=== PATIENT | male | born 1945 | race Caucasian/White ===

== ENCOUNTER → 2020-08-29 07:56 | Outpatient (BNVA) | payer MEDICARE, SELFPAY | PROVIDERS: Family Provider Internal Medicine; PCP Internal Medicine; Visit Provider Nurse Practitioner Family | DX: R97.20 Elevated prostate specific antigen [PSA] (principal) | CPT/HCPCS: 81003; 84153 ==

== ENCOUNTER → 2021-08-24 08:15 | Outpatient (BNVA) | payer MEDICARE, OTHER, SELFPAY | PROVIDERS: Family Provider Internal Medicine; PCP Internal Medicine; Visit Provider Urology | DX: R97.20 Elevated prostate specific antigen [PSA] (principal); R39.9 Unspecified symptoms and signs involving the genitourinary system | CPT/HCPCS: 51741; 51798; 81003; 99213 ==

== ENCOUNTER → 2021-11-27 10:09 | Outpatient (BNVA) | payer MEDICARE, OTHER, SELFPAY | PROVIDERS: Family Provider Internal Medicine; PCP Internal Medicine; Visit Provider Urology | DX: R39.9 Unspecified symptoms and signs involving the genitourinary system (principal); R97.20 Elevated prostate specific antigen [PSA]; N40.1 Benign prostatic hyperplasia with lower urinary tract symptoms; N13.8 Other obstructive and reflux uropathy | CPT/HCPCS: 51741; 51798; 81003; 99213 ==

== ENCOUNTER → 2022-02-26 12:58 | Outpatient (BNVA) | payer MEDICARE, SELFPAY | PROVIDERS: Family Provider Internal Medicine; PCP Physician Assistant; Visit Provider Internal Medicine | DX: E11.9 Type 2 diabetes mellitus without complications (principal); E78.2 Mixed hyperlipidemia; Z79.84 Long term (current) use of oral hypoglycemic drugs | CPT/HCPCS: 36415; 80053; 84681; 86337; 86341; 99204 ==

== ENCOUNTER → 2022-03-13 13:03 | Outpatient (BNVA) | payer MEDICARE, SELFPAY | PROVIDERS: Family Provider Internal Medicine; PCP Physician Assistant; Visit Provider Internal Medicine | DX: E11.9 Type 2 diabetes mellitus without complications (principal); E78.2 Mixed hyperlipidemia; Z79.4 Long term (current) use of insulin | CPT/HCPCS: 99214 ==

== ENCOUNTER 2022-04-03 23:42 | Emergency (ER) | payer MEDICARE, OTHER, SELFPAY ==
[2022-04-03 23:48] VITALS: BP 164/66; PULSE 64; RESP 16; TEMP 37; O2SAT 97; BMI 21.8
--- NOTE | 2022-04-03 23:52 | ED_ITS ---
HPI - Male Genitourinary General: Chief complaint: Urogenital-Male Stated complaint: blood in urine Time Seen by Provider: 04/03/22 23:45 Source: patient Mode of arrival: ambulatory Limitations: no limitations History of Present Illness: Patient is a very nice 76-year-old male who presents to ED today along with his for evaluation of gross hematuria that he began noticing this evening. Patient states he has never had this before. He states he does have a history of kidney stones but states he currently is not having any discomfort at this time. History of BPH to which he was following up with Dr. Echo yung. Patient is not having any difficulty with urination. MD Complaint: other (hematuria) Onset (ago): hour(s) Relieving factors: none Exacerbating factors: none Associated symptoms: Reports no associated symptoms and hematuria; Deny dysuria or urinary incontinence Review of Systems Const: Denies: fever(s), chills, body aches, fatigue or malaise Card: Denies: chest pain Resp: Denies: dyspnea GI: Denies: abdominal pain or change in bowel habits : Reports: hematuria; Denies: flank pain, difficulty urinating, dysuria, urinary frequency, urinary urgency, urinary hesitancy, oliguria, urinary incontinence or testicular pain Musc: Denies: back pain PFSH ED PFSH: Medical History Elevated PSA HTN (hypertension) Non-insulin dependent diabetes mellitus Surgical History H/O Achilles tendon repair H/O left knee surgery History of colonoscopy Family History Mother , at age 85 No problems noted. Father , at age 83 Diabetes Social History Smoking and tobacco status: former smoker Alcohol intake: never Marital status: Current occupational status: retired History of recent travel: No Physical Exam Const: COMMON NORMALS: no acute distress, average body habitus, patient oriented x3, no limitations, healthy appearing, alert and well nourished Resp: COMMON NORMALS: normal respiratory effort and clear to auscultation bilaterally AUSCULTATION: clear to auscultation bilaterally Cardio: COMMON NORMALS: regular rate and regular rhythm RATE: regular rate RHYTHM: regular rhythm GI: COMMON NORMALS: Normal to inspection, nondistended, normoactive bowel sounds present, Soft to palpation, non-tender, No hepatosplenomegaly present and no masses PALPATION: Yes Soft to palpation and Yes No hepatosplenomegaly present : COMMON NORMALS: Yes no CVA tenderness BLADDER/KIDNEY EXAM: Yes no CVA tenderness Back/Pelvis: COMMON NORMALS: no CVA tenderness Extremity: COMMON NORMALS: normal to inspection, no clubbing, cyanosis or edema and no pedal edema Neuro: MESHA COMA SCALE: document GCS findings [place] coma scale eye opening: Spontaneous [place] coma scale verbal response: Orientated Mesha coma scale motor response: Obey commands Mesha coma scale total score: 15 COMMON NORMALS: patient oriented x3 SENSORIUM/ORIENTATION: Yes alert Skin: COMMON NORMALS: no rashes or lesions noted GENERAL SKIN EXAM: no rashes or lesions noted Course Vital Signs: Vital signs: Vital Signs Temperature 98.6 F 04/03/22 23:48 Pulse Rate 51 L 04/04/22 00:49 Respiratory Rate 18 04/04/22 00:49 Blood Pressure 140/59 04/04/22 00:49 Pulse Oximetry 92 04/04/22 00:49 Oxygen Delivery Me thod 04/04/22 00:49 [facility] - Male Medical Decision Making Patient is a nice 76-year-old male here for complaints of gross hematuria beginning today. Vital signs are stable. Blood work shows a normal white count. UA is positive for blood, trace leuks, 10-15 WBCs, and 1+ bacteria. CT scan showing diffusely thickened bladder wall and nodular prostate gland hypertrophy. He does have a history of BPH and has followed with Dr. Dodge for this. He has multiple renal cysts. At this time we will place on antibiotics and have him follow-up with primary care. If hematuria does not resolve he may require referral back to Dr. Dodge for cystoscopy. Lab Data 04/03/22 23:58 04/03/22 23:58 Radiology Impressions Abdomen/Pelvis CT 04/04/22 00:02 IMPRESSION: 1. Diffusely thickened bladder wall. 2. Nodular prostate gland hypertrophy. 3. Multiple small simple bilateral renal cortical cysts. 4. Negative for acute abdominopelvic pathology. COMMENTS: Consistent with the [employer] [place] [employer]'s Incidental Findings Committee white paper (J Am Gregoria Radiol 2018): Any incidental renal lesion less than 1 cm or classified as too small to characterize, or any incidental cystic renal lesion characterized as simple-appearing, is likely benign. No follow-up imaging is recommended for these lesions per consensus recommendations based on imaging criteria. Laboratory Results WBC 10.0 10^3/uL (4.0-10.0) 04/03/22 23:58 RBC 4.26 10^6/uL (4.1-5.3) 04/03/22 23:58 Hgb 12.8 g/dL (11.7-16.6) 04/03/22 23:58 Hct 39.1 % (42.0-52.0) L 04/03/22 23:58 MCV 91.8 fl (80-94) 04/03/22 23:58 MCH 30.0 pg (28.0-34.0) 04/03/22 23:58 MCHC 32.7 g/dL (30.0-36.0) 04/03/22 23:58 RDW 13.8 % (12.1-15.1) 04/03/22 23:58 Plt Count 196 10^3/cmm (130-400) 04/03/22 23:58 MPV 11.0 fL (7.4-10.4) H 04/03/22 23:58 Neut % (Auto) 59.4 % 04/03/22 23:58 Lymph % (Auto) 30.9 % 04/03/22 23:58 [place] % (Auto) 6.9 % 04/03/22 23:58 Eos % (Auto) 1.8 % 04/03/22 23:58 Baso % (Auto) 0.6 % 04/03/22 23:58 Neut # (Auto) 5.95 10^3/uL (1.8-7.7) 04/03/22 23:58 Lymph # (Auto) 3.1 10^3/uL (0.8-4.8) 04/03/22 23:58 [place] # (Auto) 0.7 10^3/uL (0.2-0.9) 04/03/22 23:58 Eos # (Auto) 0.2 10^3/uL (0.0-0.8) 04/03/22 23:58 Baso # (Auto) 0.1 10^3/uL (0.0-0.1) 04/03/22 23:58 Nucleated RBC % (auto) 0 % 04/03/22 23:58 Nucleated RBCs # 0.0 /100WBC 04/03/22 23:58 Sodium 137 mmol/L (136-145) 04/03/22 23:58 Potassium 3.7 mmol/L (3.5-5.1) 04/03/22 23:58 Chloride 98 mmol/L (98-107) 04/03/22 23:58 Carbon Dioxide 23 mmol/L (22-29) 04/03/22 23:58 Anion Gap 19.7 (5-19) H 04/03/22 23:58 BUN 18 mg/dL (8-23) 04/03/22 23:58 Creatinine 1.0 mg/dL (0.7-1.2) 04/03/22 23:58 GFR Calculation Not Reportable 04/03/22 23:58 Glucose 337 mg/dL (65-115) H 04/03/22 23:58 Calculated Osmolality 299 mOsm/kg (285-295) H 04/03/22 23:58 Calcium 9.3 mg/dL (8.5-10.5) 04/03/22 23:58 Total Bilirubin 0.2 mg/dL (0.15-1.2) 04/03/22 23:58 AST 12 U/L (0-40) 04/03/22 23:58 ALT 10 U/L (0-41) 04/03/22 23:58 Alkaline Phosphatase 67 U/L (40-130) 04/03/22 23:58 Total Protein 6.8 g/dL (6.6-8.7) 04/03/22 23:58 Albumin 4.4 g/dL (3.5-5.2) 04/03/22 23:58 Globulin 2.4 g/dL (1.3-4.6) 04/03/22 23:58 Urine Color Red (Yellow) 04/04/22 00:00 Urine Appearance Bloody (CLEAR) A 04/04/22 00:00 Urine pH 6 (5-7) 04/04/22 00:00 Ur Specific Pierz 1.015 (1.005-1.030) 04/04/22 00:00 Urine Protein 3+ (Negative) H 04/04/22 00:00 Urine Glucose (UA) 4+ (Normal) H 04/04/22 00:00 Urine Ketones Negative (Negative) 04/04/22 00:00 Urine Blood 3+ (Negative) H 04/04/22 00:00 Urine Nitrate Negative (Negative) 04/04/22 00:00 Urine Bilirubin Neg (Negative) 04/04/22 00:00 Urine Urobilinogen Norm mg/dL (Negative) 04/04/22 00:00 Ur Leukocyte Esterase Trace (Negative) H 04/04/22 00:00 Urine RBC Too numerous to cnt /hpf (0-2) H 04/04/22 00:00 Urine WBC 10-15 /hpf (0-5) H 04/04/22 00:00 Ur Squamous Epith Cells 0-4 /hpf (0-5) H 04/04/22 00:00 Amorphous Sediment Not Reportable 04/04/22 00:00 Urine Bacteria 1+ /hpf (NONE) H 04/04/22 00:00 Discharge Plan Discharge Patient Disposition: Home Clinical Impression: Acute cystitis with hematuria Condition: Stable Prescriptions: New Bactrim DS 800-160 mg tablet 1 tab PO BID 7 Days Qty: 14 0RF No Action Janumet 50-1,000 mg tablet 1 tab PO BID glimepiride 4 mg tablet 4 mg PO BID niacin 500 mg capsule, extended release 500 mg PO BID simvastatin 20 mg tablet 20 mg PO DAILY amlodipine-benazepril 10-40 mg capsule 1 cap PO DAILY aspirin [Adult Low Dose Aspirin] 81 mg tablet,delayed release (DR/EC) 81 mg PO DAILY nebivolol 10 mg tablet 10 mg PO DAILY chlorthalidone 25 mg tablet 25 mg PO DAILY sildenafil (pulm.hypertension) 20 mg tablet 20 mg PO .prn Rx Instructions: administer doses at least 4-6 hours apart metformin 1,000 mg tablet 1,000 mg PO BID Qty: 180 3RF Januvia 100 mg tablet 100 mg PO DAILY Qty: 90 3RF acarbose 25 mg tablet 25 mg PO TID Qty: 90 0RF Rx Instructions: 1 month with log tamsulosin 0.4 mg capsule 0.4 mg PO DAILY Qty: 90 3RF Discharge Orders: Discharge ED (Routine); Ordered 04/04/22 Ordered By: Guera Buenrostro Referrals: Swati Welsh PA [Primary Care Provider] - Activity Restrictions/Additional Instructions: As we discussed begin your antibiotics immediately. Follow-up with your primary care provider in 3 to 4 days for reevaluation. You need to return to the emergency department for onset of flank pain, abdominal pain, fevers, vomiting, generally feeling ill or unwell, inability to urinate, or any other concerns you may have. I hope you begin to feel better soon. Also as we discussed if h ematuria (blood in your urine) is not improved after antibiotic therapy you may require referral back to see Dr. Dodge for cystoscopy. Coding Level of Care Code ED Professor Of Genetics for Britton Fwharish Exam Comprehensive
[2022-04-04 00:02] LABS: Basophils # 0.1 10^3/uL (0.0-0.1); Basophils % 0.6 %; Eosinophils # 0.2 10^3/uL (0.0-0.8); Eosinophils % 1.8 %; Hematocrit 39.1 % (42.0-52.0); Hemoglobin 12.8 g/dL (11.7-16.6); Lymphocytes # 3.1 10^3/uL (0.8-4.8); Lymphocytes % 30.9 %; Mean Corpuscular HGB Conc 32.7 g/dL (30.0-36.0); Mean Corpuscular Volume 91.8 fl (80-94); Monocytes # 0.7 10^3/uL (0.2-0.9); Monocytes % 6.9 %; Neutrophils # 5.95 10^3/uL (1.8-7.7); Neutrophils % 59.4 %; Nucleated Red Blood Cells % 0 %; Platelet Count 196 10^3/cmm (130-400); Red Blood Count 4.26 10^6/uL (4.1-5.3); Red Cell Distribution Width 13.8 % (12.1-15.1)
--- NOTE | 2022-04-04 00:02 | CTR_ITS ---
PROCEDURE INFORMATION: Exam: CT Abdomen And Pelvis Without And With Contrast Exam date and time: 04/04/2022 12:16 AM Age: 76 years old Clinical indication: Patient HX: Gross hematuria. History of nephrolithiasis. TECHNIQUE: Imaging protocol: Computed tomography of the abdomen and pelvis without and with contrast. Radiation optimization: All CT scans at this facility use at least one of these dose optimization techniques: automated exposure control; mA and/or kV adjustment per patient size (includes targeted exams where dose is matched to clinical indication); or iterative reconstruction. Contrast material: OMNI 350; Contrast volume: 100 ml; Contrast route: INTRAVENOUS (IV); Other protocol: This patient has received 0 known CTs and 0 known cardiac nuclear medicine studies in the 12 months prior to the current study. COMPARISON: No relevant prior studies available. RADIATION DOSE METRICS: Total DLP (mGy-cm): 766.93 FINDINGS: Liver: Normal. No mass. Gallbladder and bile ducts: There is possibly trace pneumobilia. Nondilated biliary system. Contracted, grossly unremarkable gallbladder. Pancreas: Atrophic pancreatic parenchyma focal lesion. Spleen: Numerous small calcified granulomas throughout the spleen. Negative for splenomegaly. Adrenal glands: Normal. No mass. Kidneys and ureters: Several small simple bilateral renal cortical cysts. Renal cortical atrophy left worse than right. Negative for solid renal mass. Negative for hydronephrosis. Negative for renal stones. Negative for perinephric inflammation. Negative for ureteral stone. Stomach and bowel: Unremarkable. No obstruction. No mucosal thickening. Appendix: No evidence of appendicitis. Intraperitoneal space: Unremarkable. No free air. No significant fluid collection. Vasculature: Extensive atherosclerotic wall plaques throughout abdominal aorta. Negative for aneurysm. Negative for dissection. Large plaque volume of the bilateral common iliac arteries with moderate stenosis of the origins. Lymph nodes: Unremarkable. No enlarged lymph nodes. Urinary bladder: Diffuse bladder wall thickening. Negative for bladder stone. Reproductive: Prostatomegaly. Diffuse heterogeneity and nodularity. Bones/joints: Severe L5-S1 disc disease. Negative for suspicious bone lesion. Negative for fracture. Soft tissues: Unremarkable. CT/CT abdomen pelvis wo/w [id number] IMPRESSION: 1. Diffusely thickened bladder wall. 2. Nodular prostate gland hypertrophy. 3. Multiple small simple bilateral renal cortical cysts. 4. Negative for acute abdominopelvic pathology. COMMENTS: Consistent with the [place] [employer]'s Incidental Findings Committee white paper (J Am Gregoria Radiol 2018): Any incidental renal lesion less than 1 cm or classified as too small to characterize, or any incidental cystic renal lesion characterized as simple-appearing, is likely benign. No follow-up imaging is recommended for these lesions per consensus recommendations based on imaging criteria.
[2022-04-04 00:04] VITALS: BP 159/57; PULSE 56; RESP 14; O2SAT 94
[2022-04-04 00:19] LABS: Urine Color Red (Yellow)
[2022-04-04 00:20] LABS: Add Urine Microscopic? YES; Bilirubin Urine Neg (Negative); Blood Urine 3+ (Negative); Glucose Urine UA 4+ (Normal); Ketones Urine Negative (Negative); Leukocyte Esterase Urine Trace (Negative); Nitrate Urine Negative (Negative); Protein Urine 3+ (Negative); Specific Gravity, Urine 1.015 (1.005-1.030); Urine Appearance Bloody (CLEAR); Urobilinogen Urine Norm (Negative); pH Urine 6 (5-7)
[2022-04-04 00:21] LABS: Add Urine Culture? Yes; Bacteria Urine 1+ /hpf; RBC Urine TOO NUMEROUS TO CNT /hpf (0-2); Squamous Epithelial Cell Urine 0-4 /hpf (0-5)
[2022-04-04] MEDS: iohexol 350 mg/mL 500 mL Btl (per mL) IV (00:26)
[2022-04-04 00:34] LABS: Alanine Aminotransferase 10 U/L (0-41); Albumin Level 4.4 g/dL (3.5-5.2); Alkaline Phosphatase 67 U/L (40-130); Anion Gap 19.7 (5-19); Aspartate Amino Transferase 12 U/L (0-40); Blood Urea Nitrogen 18 mg/dL (8-23); Calcium 9.3 mg/dL (8.5-10.5); Carbon Dioxide 23 mmol/L (22-29); Chloride 98 mmol/L (98-107); Creatinine Clr Calc Pharmacy 61.5758; Globulin 2.4 g/dL (1.3-4.6); Glucose 337 mg/dL (65-115); Osmolality Calculated 299 mOsm/kg (285-295); Potassium 3.7 mmol/L (3.5-5.1); Sodium 137 mmol/L (136-145); Total Bilirubin 0.2 mg/dL (0.15-1.2); Total Protein 6.8 g/dL (6.6-8.7)
[2022-04-04 00:49] VITALS: BP 140/59; PULSE 51; RESP 18; O2SAT 92
[2022-04-04] MEDS: sulfamethoxazole-trimeth DS 160-800 mg Tablet 1 TAB PO (01:58)
[2022-04-04 02:08] VITALS: BP 127/60; PULSE 52; RESP 18; O2SAT 96
== END 2022-04-04 02:11 | disposition home or self-care (01) ==
PROVIDERS: Emergency Provider Physician Assistant; PCP Physician Assistant
DX: N30.01 Acute cystitis with hematuria (principal)
CPT/HCPCS: 74178; 80053; 81001; 85025; 87086; 99285; Q9967

== ENCOUNTER → 2022-05-30 12:34 | Outpatient (BNVA) | payer MEDICARE, OTHER, SELFPAY | PROVIDERS: PCP Physician Assistant; Visit Provider Internal Medicine | DX: E11.9 Type 2 diabetes mellitus without complications (principal); E78.2 Mixed hyperlipidemia; Z79.84 Long term (current) use of oral hypoglycemic drugs | CPT/HCPCS: 99214 ==

== ENCOUNTER → 2022-09-04 14:16 | Outpatient (BNVA) | payer MEDICARE, OTHER, SELFPAY | PROVIDERS: PCP Physician Assistant; Visit Provider Internal Medicine | DX: E11.9 Type 2 diabetes mellitus without complications (principal); E78.2 Mixed hyperlipidemia | CPT/HCPCS: 99214 ==

== ENCOUNTER 2022-12-13 08:03 | Outpatient (CLI) | payer MEDICARE, SELFPAY ==
--- NOTE | 2022-12-13 | XR_ITS ---
WS: [id number] CHEST 2 VIEWS HISTORY: COUGH COMPARISON: None available. Lungs: Mildly hyperexpanded lungs. Benign granuloma anterior LEFT upper lobe. No pneumonia. Normal va sculature. Cardiac size: Normal. Mediastinum/Aorta: Moderate atherosclerotic plaque within the thoracic aorta. Bones: Normal. IMPRESSION: No acute cardiopulmonary disease. Mild hyperexpansion.
== END 2022-12-13 08:04 | disposition home or self-care (01) ==
LOC: RADOUTREAD 12-16 08:05
PROVIDERS: PCP Physician Assistant; Visit Provider Physician Assistant
DX: E11.65 Type 2 diabetes mellitus with hyperglycemia (principal); E78.2 Mixed hyperlipidemia; Z79.84 Long term (current) use of oral hypoglycemic drugs; Z79.899 Other long term (current) drug therapy; Z79.4 Long term (current) use of insulin
CPT/HCPCS: 99214

== ENCOUNTER 2023-02-24 09:35 | Emergency (ER) | payer MEDICARE, OTHER, SELFPAY ==
[2023-02-24 09:53] VITALS: BP 118/64; PULSE 50; RESP 16; TEMP 36.7; O2SAT 98; BMI 22.8
--- NOTE | 2023-02-24 10:18 | ED_ITS ---
HPI - Eye Problem General: Chief complaint: Eye Problems Stated complaint: Lt eye inj Time Seen by Provider: 02/24/23 09:36 Source: patient Mode of arrival: ambulatory History of Present Illness: 77-year-old male presents emergency room complaining of discomfort in the left eye he was rubbing his eyes last night felt like he got something in it he is able to get out but he still feels like there is of the either in the eye or having had scratched the eye. MD chief complaint: eye pain Associated symptoms: Denies fever(s) Review of Systems Const: Denies: fever(s) or chills Eyes: Reports: eye discomfort and eye redness; Denies: change in vision or blurry vision PFSH ED PFSH: Medical History Non-insulin dependent diabetes mellitus HTN (hypertension) Elevated PSA Surgical History H/O Achilles tendon repair H/O left knee surgery History of colonoscopy Family History Mother , at age 85 No problems noted. Father , at age 83 Diabetes Social History Smoking and tobacco/nicotine status: former use of tobacco/nicotine Alcohol intake: never Marital status: Current occupational status: retired Physical Exam Narrative: EXAM NARRATIVE: Mild injection on the left eye no hyphema pupil equal react light extraocular movements are intact no subconjunctival hematoma fluorescein dye applied after eye anesthetized with tetracaine. No corneal abrasions or irritations. I irrigated out eversion of the eyelids no foreign bodies Course Vital Signs: Vital signs: Vital Signs Temperature 98.0 F 02/24/23 09:53 Pulse Rate 50 L 02/24/23 11:45 Respiratory Rate 16 02/24/23 11:45 Blood Pressure 118/64 02/24/23 09:53 Pulse Oximetry 96 02/24/23 11:45 Oxygen Delivery Me thod Room Air 02/24/23 09:53 MDM - Eye Problem Medical Decision Making TobraDex drops 1 drop every 4 hours while awake for the next 3 to 5 days follow- up with ophthalmology optometry if not improving Medical Records I reviewed the patient's medical records. Lab Data I reviewed the patient's lab results. All radiology interpretation(s) finalized by discharge Discharge Plan Discharge Patient Disposition: Home Clinical Impression: Corneal abrasion Condition: Stable Prescriptions: New Tobradex ST 0.3-0.05 % drops,suspension 1 drp ophthalmic (eye) Q4H Qty: 5 0RF No Action Janumet 50-1,000 mg tablet 1 tab PO BID niacin 500 mg capsule, extended release 500 mg PO BID simvastatin 20 mg tablet 20 mg PO DAILY amlodipine-benazepril 10-40 mg capsule 1 cap PO DAILY aspirin [Adult Low Dose Aspirin] 81 mg tablet,delayed release (DR/EC) 81 mg PO DAILY metoprolol succinate 50 mg tablet extended release 24 hr 50 mg PO DAILY chlorthalidone 25 mg tablet 25 mg PO DAILY insulin glargine [Lantus Solostar U-100 Insulin] 100 unit/mL (3 mL) insulin pen 50 unit SUBCUT ONCE 30 Days Qty: 15 2RF azithromycin [Zithromax] 500 mg tablet 500 mg PO DAILY 5 Days Qty: 5 0RF nebivolol 10 mg tablet 10 mg PO DAILY chlorthalidone 25 mg tablet 25 mg PO DAILY sildenafil (pulm.hypertension) 20 mg tablet 20 mg PO .prn Rx Instructions: administer doses at least 4-6 hours apart acarbose 25 mg tablet 25 mg PO TID Qty: 90 0RF Rx Instructions: 1 month with log acarbose 50 mg tablet 50 mg PO TID Qty: 300 2RF tamsulosin 0.4 mg capsule 0.4 mg PO DAILY Qty: 90 3RF Discharge Orders: Discharge ED (Routine); Ordered 02/24/23 Ordered By: Phi Cantrell Referrals: Swati Welsh PA [Primary Care Provider] - Discharge Diet: Usual diet Discharge Activity: Resume usual activity Patient Instructions: Opioid Safety, Pain Management Activity Restrictions/Additional Instructions: Thank you for choosing [facility] for your healthcare needs today. Please realize this is an emergency room and that we are providing you with a medical screening exam and this may not be complete and all inclusive of all the testing and or work up that you may need to determine your ailment or severity of your illness. It is very important that you follow up as instructed or that you return to the Emergency Department should you have concerns or if your condition changes or worsens in any way. Examination of the eye did not show any retained foreign bodies and there was no sign of significant corneal abrasion suspected based on your history you to my no chronic abrasion that is already partially healed likely from foreign body suspect that you were able to wash it or dislodge it out of your eye shortly after this happened you recommend use of 2 the antibiotic steroid combination eyedrops for the next 3 to 5 days if not improving follow-up with your primary garnett mechanic/electrical test technician Coding Level of Care Code ED Biodiesel Process Control Technician for Britton Kimbrough
[2023-02-24] MEDS: fluorescein 1 mg Strip EYE-LEFT (10:41)
[2023-02-24] MEDS: tetracaine 0.5% Op Soln 4 mL Btl 1 DROP EYE-LEFT (10:41)
[2023-02-24 11:45] VITALS: PULSE 50; RESP 16; O2SAT 96
[2023-02-24] MEDS: eye irrigation 30 mL Btl EYE-LEFT (11:46)
== END 2023-02-24 11:48 | disposition home or self-care (01) ==
PROVIDERS: Emergency Provider Family Medicine; PCP Physician Assistant
DX: S05.02XA Injury of conjunctiva and corneal abrasion without foreign body, left eye, initial encounter (principal); Z79.82 Long term (current) use of aspirin; Z79.4 Long term (current) use of insulin; Z87.891 Personal history of nicotine dependence; E11.9 Type 2 diabetes mellitus without complications; I10 Essential (primary) hypertension; X58.XXXA Exposure to other specified factors, initial encounter
CPT/HCPCS: 99283

== ENCOUNTER → 2023-03-18 08:48 | Outpatient (BNVA) | payer MEDICARE, OTHER, SELFPAY | PROVIDERS: PCP Physician Assistant; Visit Provider Internal Medicine | DX: E11.9 Type 2 diabetes mellitus without complications (principal); E78.2 Mixed hyperlipidemia; Z79.4 Long term (current) use of insulin | CPT/HCPCS: 99214 ==

== ENCOUNTER → 2023-04-03 09:10 | Outpatient (BNVA) | payer MEDICARE, OTHER, SELFPAY | PROVIDERS: PCP Physician Assistant; Visit Provider Internal Medicine | DX: E11.9 Type 2 diabetes mellitus without complications (principal); E78.2 Mixed hyperlipidemia; Z79.4 Long term (current) use of insulin | CPT/HCPCS: 99214 ==

== ENCOUNTER → 2023-05-08 11:17 | Outpatient (BNVA) | payer MEDICARE, SELFPAY | PROVIDERS: PCP Physician Assistant; Visit Provider Internal Medicine | DX: E11.9 Type 2 diabetes mellitus without complications (principal); E78.2 Mixed hyperlipidemia; Z79.4 Long term (current) use of insulin | CPT/HCPCS: 99214 ==

== ENCOUNTER 2023-08-04 06:55 | Outpatient (CLI) | payer MEDICARE, SELFPAY ==
[2023-08-04 07:30] LABS: Estmated Average Glucose 186; Hemoglobin A1C 8.1 % (4.0-6.0)
[2023-08-04 07:34] LABS: Alanine Aminotransferase 17 U/L (0-41); Alkaline Phosphatase 71 U/L (40-130); Anion Gap 13.4 (5-19); Aspartate Amino Transferase 18 U/L (0-40); Blood Urea Nitrogen 22 mg/dL (8-23); Calcium 9.2 mg/dL (8.5-10.5); Carbon Dioxide 24 mmol/L (22-29); Chloride 106 mmol/L (98-107); Chol HDL Ratio 3.76 mg/dL (1.0-5.00); Cholesterol 128 mg/dL (0-200); Globulin 2.9 g/dL (1.3-4.6); Glucose 163 mg/dL (65-115); HDL Cholesterol 34 mg/dL (60-100); LDL Cholesterol Calculated 70 mg/dL (50-129); LDL HDL Ratio 2.06 RATIO (0.00-3.22); Osmolality Calculated 295 mOsm/kg (285-295); Potassium 4.4 mmol/L (3.5-5.1); Sodium 139 mmol/L (136-145); Total Bilirubin 0.4 mg/dL (0.15-1.2); Total Protein 6.9 g/dL (6.6-8.7); Triglycerides 122 mg/dL (0-150)
[2023-08-04 07:48] LABS: Creatinine Urine, Random 59 mg/dL (39-259); Microalbum Creatinine Ratio Ur 17 mg/dL (0-20); Microalbumin Random Urine 1 ug/dL (0-20)
== END 2023-08-04 06:56 | disposition home or self-care (01) ==
LOC: LAB 06:58
PROVIDERS: PCP Physician Assistant; Visit Provider Internal Medicine
DX: E78.2 Mixed hyperlipidemia (principal); E11.9 Type 2 diabetes mellitus without complications
CPT/HCPCS: 80053; 80061; 82044; 83036

== ENCOUNTER → 2023-08-13 10:25 | Outpatient (BNVA) | payer MEDICARE, SELFPAY | PROVIDERS: PCP Physician Assistant; Visit Provider Internal Medicine | DX: E11.9 Type 2 diabetes mellitus without complications (principal); E78.2 Mixed hyperlipidemia; Z79.4 Long term (current) use of insulin | CPT/HCPCS: 99214 ==

== ENCOUNTER → 2023-08-31 16:21 | Outpatient (BNVA) | payer MEDICARE, SELFPAY | PROVIDERS: PCP Physician Assistant; Visit Provider Emergency Medicine | DX: R05.9 Cough, unspecified (principal); U07.1 COVID-19 | CPT/HCPCS: 87071; 87426; 87880 ==

== ENCOUNTER 2023-10-23 20:00 | Outpatient (CLI) | payer MEDICARE, SELFPAY | END 2023-10-23 20:01 | disposition home or self-care (01) | LOC: SLEEP 23:02 | PROVIDERS: PCP Physician Assistant; Visit Provider Physician Assistant | DX: G47.33 Obstructive sleep apnea (adult) (pediatric) (principal) | CPT/HCPCS: 95810 ==

== ENCOUNTER 2023-11-07 07:12 | Outpatient (CLI) | payer MEDICARE, SELFPAY ==
[2023-11-07 07:54] LABS: Creatinine Urine, Random 91 mg/dL (39-259); Microalbum Creatinine Ratio Ur 11 mg/dL (0-20); Microalbumin Random Urine 1 ug/dL (0-20)
[2023-11-07 07:55] LABS: Alanine Aminotransferase 18 U/L (0-41); Albumin Level 3.9 g/dL (3.5-5.2); Alkaline Phosphatase 81 U/L (40-130); Anion Gap 14.4 (5-19); Aspartate Amino Transferase 17 U/L (0-40); Blood Urea Nitrogen 26 mg/dL (8-23); Calcium 8.8 mg/dL (8.5-10.5); Carbon Dioxide 24 mmol/L (22-29); Chloride 106 mmol/L (98-107); Chol HDL Ratio 4.62 mg/dL (1.0-5.00); Cholesterol 120 mg/dL (0-200); Glucose 134 mg/dL (65-115); HDL Cholesterol 26 mg/dL (60-100); LDL Cholesterol Calculated 70 mg/dL (50-129); LDL HDL Ratio 2.69 RATIO (0.00-3.22); Osmolality Calculated 297 mOsm/kg (285-295); Potassium 4.4 mmol/L (3.5-5.1); Sodium 140 mmol/L (136-145); Total Bilirubin 0.4 mg/dL (0.15-1.2); Total Protein 6.9 g/dL (6.6-8.7); Triglycerides 120 mg/dL (0-150)
[2023-11-07 07:57] LABS: Estmated Average Glucose 203; Hemoglobin A1C 8.7 % (4.0-6.0)
== END 2023-11-07 07:13 | disposition home or self-care (01) ==
PROVIDERS: PCP Physician Assistant; Visit Provider Internal Medicine
DX: E11.9 Type 2 diabetes mellitus without complications (principal); E78.2 Mixed hyperlipidemia
CPT/HCPCS: 36415; 80053; 80061; 82044; 83036

== ENCOUNTER → 2023-11-13 10:54 | Outpatient (BNVA) | payer MEDICARE, SELFPAY | PROVIDERS: PCP Physician Assistant; Visit Provider Internal Medicine | DX: E11.9 Type 2 diabetes mellitus without complications (principal); E78.2 Mixed hyperlipidemia; Z79.4 Long term (current) use of insulin | CPT/HCPCS: 99214 ==

== ENCOUNTER → 2024-01-07 17:31 | Outpatient (BNVA) | payer MEDICARE, SELFPAY | PROVIDERS: PCP Physician Assistant; Visit Provider Emergency Medicine | DX: R39.9 Unspecified symptoms and signs involving the genitourinary system (principal); R50.9 Fever, unspecified | CPT/HCPCS: 81000; 87400 ==

== ENCOUNTER → 2024-01-19 11:16 | Outpatient (BNVA) | payer MEDICARE, SELFPAY | PROVIDERS: PCP Physician Assistant; Visit Provider Family Medicine | DX: R05.3 Chronic cough (principal) | CPT/HCPCS: 71046 ==

== ENCOUNTER 2024-01-20 20:00 | Outpatient (CLI) | payer MEDICARE, OTHER, SELFPAY | END 2024-01-20 20:01 | disposition home or self-care (01) | LOC: SLEEP 21:50 | PROVIDERS: PCP Physician Assistant; Visit Provider Physician Assistant | DX: G47.33 Obstructive sleep apnea (adult) (pediatric) (principal); Z99.89 Dependence on other enabling machines and devices | CPT/HCPCS: 95811 ==

== ENCOUNTER 2024-01-27 19:05 | Emergency (ER) | payer MEDICARE, OTHER, SELFPAY ==
[2024-01-27 19:25] VITALS: BP 148/74; PULSE 60; RESP 15; TEMP 36.8; O2SAT 96; BMI 24.5
[2024-01-27 19:32] VITALS: BP 152/63; PULSE 89; O2SAT 96
--- NOTE | 2024-01-27 19:47 | CTR_ITS ---
PROCEDURE INFORMATION: Exam: CT Chest With Contrast; Diagnostic Exam date and time: 01/27/2024 9:21 PM Age: 78 years old Clinical indication: Shortness of breath; Additional info: SOB, coughing up white sputum, normal cxr TECHNIQUE: Imaging protocol: Diagnostic computed tomography of the chest with contrast. Radiation optimization: All CT scans at this facility use at least one of these dose optimization techniques: automated exposure control; mA and/or kV adjustment per patient size (includes targeted exams where dose is matched to clinical indication); or iterative reconstruction. Contrast material: OMNI 350; Contrast volume: 100 ml; Contrast route: INTRAVENOUS (IV); COMPARISON: CR XR chest 2V* [id number] 01/19/2024 11:22 AM RADIATION DOSE METRICS: Total DLP (mGy-cm): 429.17 FINDINGS: Lungs: Emphysematous changes. Left upper lobe calcified granuloma. Pleural spaces: Unremarkable. No pneumothorax. No pleural effusion. Heart: Unremarkable. No cardiomegaly. No pericardial effusion. Lymph nodes: Unremarkable. No enlarged lymph nodes. Vasculature: Ascending thoracic aorta dilated to 3.7 cm. Coronary artery and aortic atherosclerotic calcifications. Spleen: Scattered benign calcified splenic granulomas. Kidneys: Bilateral renal cysts, negative for follow up advised. Bones/joints: Unremarkable. No acute fracture. Soft tissues: Unremarkable. CT/CT chest w con* [id number] IMPRESSION: 1. Negative for infiltrate. 2. Ascending thoracic aorta dilated to 3.7 cm. 3. Coronary artery and aortic atherosclerotic calcifications. 4. Bilateral renal cysts, negative for follow up advised. 5. Scattered benign calcified splenic granulomas. 6. Emphysematous changes. 7. Left upper lobe calcified granuloma.
--- NOTE | 2024-01-27 19:54 | ECG_ITS ---
[facility] Test Date: 2024-01-27 Pat Name: Herman Russo Department: Room: Gender: Male Television Actor: : 1945 Requested By: Richard Zhang Order Number: [id number] Richie MD: Neil Condon M.D. Measurements Intervals Sargents Rate: 53 P: 66 NM: 186 QRS: -42 QRSD: 111 T: 70 QT: 393 QTc: 370 Interpretive Statements SINUS BRADYCARDIA LEFT AXIS DEVIATION [QRS AXIS < -30] INCOMPLETE RIGHT BUNDLE BRANCH BLOCK [90+ ms QRS DURATION, TERMINAL R IN V1/V2, 40+ ms S IN I/aVL/V4/V5/V6] MODERATE VOLTAGE CRITERIA FOR LVH, CONSIDER NORMAL VARIANT [MEETS CRITERIA IN ONE OF: R(aVL), S(V1), R(V5), R(V5/V6)+S(V1)] NONSPECIFIC T-WAVE ABNORMALITY No previous ECG available for comparison Electronically Signed On 01-28-2024 18:50:01 UTILITY BAG ASSEMBLER by Neil Condon M.D. [email or web address]
[2024-01-27 20:13] LABS: Bilirubin Urine Negative (Negative); Blood Urine Negative (Negative); Glucose Urine UA Negative (Normal); Ketones Urine Trace (Negative); Leukocyte Esterase Urine Negative (Negative); Nitrate Urine Negative (Negative); Protein Urine Negative (Negative); Specific Gravity, Urine 1.028 (1.005-1.030); Urine Appearance Clear (CLEAR); Urine Color Yellow (Yellow)
[2024-01-27 20:18] LABS: Add Urine Microscopic? YES; Bacteria Urine None Seen /hpf; Hyaline Casts Urine 2.87 /lpf; RBC Urine 0-2 /hpf (0-2); Squamous Epithelial Cell Urine 0-5 /hpf (0-5); WBC Urine 0-5 /hpf (0-5)
--- NOTE | 2024-01-27 20:21 | W.ED.WEAKNES ---
HPI - Weakness General: Chief complaint: Weakness Stated complaint: Feels horrible, weak sleepy congested headache Time Seen by Provider: 01/27/24 19:36 Source: patient Mode of arrival: ambulatory Limitations: no limitations History of Present Illness: Patient is a 78-year-old male with past medical history of hypertension and type 2 diabetes who presents to the emergency department complaining of 6 weeks of overall weakness. He has been seen at urgent care and with primary care multiple times for the symptoms. At 1 point was treated with antibiotics for a UTI, also is currently on Augmentin for upper respiratory infection. He states that intermittently his symptoms will consist of weakness, fatigue, overall malaise, congestion, and a productive cough. He comments that he does not want to get out of bed some days and that some days he will feel okay. He states that this has gotten more constant, he recently had chest x-ray and labs that were unremarkable. He states his blood sugars have been running normal, he sees Dr. Diane. He is denying any chest pain or shortness of breath. No abdominal pain, nausea vomiting diarrhea, blood in stool, or other symptoms at this time. Afebrile on arrival, vitals overall normal. He is denying any sick contacts. MD Complaint: generalized weakness Onset (ago): week(s) (6) Duration: intermittent and progressively worsening Location: generalized Associated symptoms: Denies chest pain, chills, dysuria, fever(s), headache(s), nausea or vomiting Review of Systems General: Reports: 10 or more systems reviewed and unremarkable except in HPI and below Const: Reports: fatigue and malaise; Denies: fever(s) or chills Eyes: Denies: change in vision ENMT: Reports: nasal congestion; Denies: throat pain, ear or mastoid pain or nasal discharge Card: Denies: chest pain, palpitations, swelling of feet/ankles or lightheadedness Resp: Reports: productive cough; Denies: dyspnea or wheezing GI: Denies: abdominal pain, nausea, vomiting, diarrhea or constipation : Denies: flank pain, difficulty urinating, dysuria or urinary frequency Musc: Reports: muscle weakness; Denies: neck pain, back pain or joint pain Skin/Breast: Denies: rash Neuro: Denies: headache(s) or numbness in extremities PFSH ED PFSH: Medical History Non-insulin dependent diabetes mellitus HTN (hypertension) Elevated PSA Surgical History H/O Achilles tendon repair H/O left knee surgery History of colonoscopy Family History Mother , at age 85 No problems noted. Father , at age 83 Diabetes Social History Smoking and tobacco/nicotine status: never used tobacco/nicotine Alcohol intake: never Marital status: Current occupational status: retired Physical Exam Const: COMMON NORMALS: no acute distress, patient oriented x3 and no limitations GENERAL APPEARANCE: cooperative, comfortable and well developed ORIENTATION/CONSCIOUSNESS: Yes awake, Yes oriented to person, Yes oriented to place and Yes oriented to time HENMT: COMMON NORMALS: normocephalic, atraumatic, hearing grossly normal bilaterally, Normal external nose present and Normal nasal mucous membranes and turbinates present HEAD & SCALP: normocephalic and atraumatic FACE & SINUS: normal facial exam NOSE: Normal external nose present, Normal nares present and Normal nasal mucous membranes and turbinates present MOUTH: Normal oral and palatal mucosa present, lip normal and tongue normal THROAT: posterior oropharynx normal, tonsils normal and uvula midline Eye: COMMON NORMALS: Equal, round and reactive pupils present, EOMs intact bilaterally and conjunctivae normal CONJUNCTIVA: Yes conjunctivae normal PUPIL: Yes Equal, round and reactive pupils present Neck/C-Spine: COMMON NORMALS: full ROM, supple and no JVD Resp: COMMON NORMALS: normal respiratory effort, No retractions and No use of accessory muscles AUSCULTATION: wheezes (Mild) right upper Cardio: COMMON NORMALS: no JVD, regular rate, regular rhythm, No clicks present (Cardio), No murmurs present (Cardio) and No rub (Cardio) RATE: regular rate RHYTHM: regular rhythm GI: COMMON NORMALS: Normal to inspection, nondistended, normoactive bowel sounds present, Soft to palpation and non-tender AUSCULTATION: Yes normoactive bowel sounds PALPATION: Yes Soft to palpation RECTAL EXAM: Yes deferred Extremity: COMMON NORMALS: normal to inspection, full ROM and capillary refill normal Neuro: COMMON NORMALS: patient oriented x3, moves all extremities, no focal motor deficits and no sensory deficits noted SENSORIUM/ORIENTATION: Yes oriented to person, Yes oriented to place and Yes oriented to time Psych: COMMON NORMALS: mental status grossly normal and Normal thought process present THOUGHT PROCESS: Normal thought process present Skin: COMMON NORMALS: no rashes or lesions noted GENERAL SKIN EXAM: no rashes or lesions noted Course Vital Signs: Vital signs: Vital Signs Temperature 98.2 F 01/27/24 19:25 Pulse Rate 62 01/27/24 22:36 Respiratory Rate 15 01/27/24 19:25 Blood Pressure 115/57 01/27/24 22:36 Pulse Oximetry 96 01/27/24 22:36 Oxygen Delivery Me thod Room Air 01/27/24 19:32 MDM - Weakness Medical Decision Making Patient presented with 6 weeks of overall weakness. Has been seen multiple times by primary care as well as at the urgent care. Treated for UTI with antibiotics, also currently is on Augmentin for sinus infection. States that he has never had issues like this in the past. He does report to me he had a history of anxiety and depression once before and took medications for this, he does not think this is what he is dealing with now. Today his lab work was all normal. EKGs were reviewed with physician showing normal sinus rhythm with no acute findings. Chest x-ray reviewed from the other day was normal, ordered CT today which was not demonstrate any acute findings. His lab work all was normal including normal troponin and normal 2-hour troponin. His BNP was normal. No signs of urinary tract infection. Overall physical examination unremarkable. Very unlikely that this is any acute process causing his weakness, he has referral placed for ENT but has not gotten a call to follow-up with them yet. Also has been in contact with primary care in regards to this potentially being related to stress/anxiety/depression or even inflammatory causes such as tickborne illness or lupus. I discussed all of these possibilities with patient and why this needs to be followed up outpatient being that these are send out labs and needs referral to appropriate specialty. Will put referral back in for ENT so that he can have his chronic sinus issues be looked at, will continue to take his Augmentin. Will give 1 shot of Decadron here. Patient already takes Flonase, already is on antihistamine, and currently on antibiotics so this is all covered. Will have him to continue drinking lots of fluids. Reasons to return were thoroughly discussed, and all other questions and concerns were addressed at this time. Lab Data 01/27/24 20:05 01/27/24 20:[address] 01/27/24 19:47 IMPRESSION: 1. Negative for infiltrate. 2. Ascending thoracic aorta dilated to 3.7 cm. 3. Coronary artery and aortic atherosclerotic calcifications. 4. Bilateral renal cysts, negative for follow up advised. 5. Scattered benign calcified splenic granulomas. 6. Emphysematous changes. 7. Left upper lobe calcified granuloma. Laboratory Results WBC 12.28 10^3/uL (3.29-11.43) H 01/27/24 20:05 RBC 4.84 10^6/uL (3.85-5.65) 01/27/24 20:05 Hgb 14.60 g/dL (11.27-16.99) 01/27/24 20:05 Hct 43.6 % (37-53) 01/27/24 20:05 MCV 90.1 fl (82-101) 01/27/24 20:05 MCH 30.2 pg (27-33) 01/27/24 20:05 MCHC 33.5 g/dL (30-55) 01/27/24 20:05 RDW 13.7 % (12.1-15.1) 01/27/24 20:05 Plt Count 193 10^3/cmm (157-399) 01/27/24 20:05 MPV 11.0 fL (7.4-10.4) H 01/27/24 20:05 Neut % (Auto) 75.6 % 01/27/24 20:05 Lymph % (Auto) 13.8 % 01/27/24 20:05 [place] % (Auto) 7.0 % 01/27/24 20:05 Eos % (Auto) 3.0 % 01/27/24 20:05 Baso % (Auto) 0.2 % 01/27/24 20:05 Neut # (Auto) 9.28 10^3/uL (1.8-7.7) H 01/27/24 20:05 Lymph # (Auto) 1.7 10^3/uL (0.8-4.8) 01/27/24 20:05 [place] # (Auto) 0.9 10^3/uL (0.2-0.9) 01/27/24 20:05 Eos # (Auto) 0.4 10^3/uL (0.0-0.8) 01/27/24 20:05 Baso # (Auto) 0.0 10^3/uL (0.0-0.1) 01/27/24 20:05 Nucleated RBC % (auto) 0 % 01/27/24 20:05 Nucleated RBCs # 0.0 /100WBC 01/27/24 20:05 Sodium 137 mmol/L (136-145) 01/27/24 20:05 Potassium 4.4 mmol/L (3.5-5.1) 01/27/24 20:05 Chloride 105 mmol/L (98-107) 01/27/24 20:05 Carbon Dioxide 24 mmol/L (22-29) 01/27/24 20:05 Anion Gap 12.4 (5-19) 01/27/24 20:05 BUN 26 mg/dL (8-23) H 01/27/24 20:05 Creatinine 1.4 mg/dL (0.7-1.2) H 01/27/24 20:05 GFR Calculation Not Reportable 01/27/24 20:05 Glucose 134 mg/dL (65-115) H 01/27/24 20:05 Calculated Osmolality 291 mOsm/kg (285-295) 01/27/24 20:05 Calcium 8.9 mg/dL (8.5-10.5) 01/27/24 20:05 Magnesium 2.2 mg/dL (1.7-2.3) 01/27/24 20:05 Total Bilirubin 0.4 mg/dL (0.15-1.2) 01/27/24 20:05 AST 14 U/L (0-40) 01/27/24 20:05 ALT 23 U/L (0-41) 01/27/24 20:05 Alkaline Phosphatase 75 U/L (40-130) 01/27/24 20:05 Troponin T Baseline 24 ng/L (0-15) H 01/27/24 20:05 Troponin T 120 Minute 24.04 ng/L (0-15) H 01/27/24 22:15 Delta Troponin T 0.04 ABS# (0-10) 01/27/24 22:15 NT-Pro-B Natriuret Pep 67 pg/mL (0-450) 01/27/24 20:05 Total Protein 6.2 g/dL (6.6-8.7) L 01/27/24 20:05 Albumin 4.0 g/dL (3.5-5.2) 01/27/24 20:05 Globulin 2.2 g/dL (1.3-4.6) 01/27/24 20:05 Lipase 18 U/L (13-60) 01/27/24 20:05 Urine Color Yellow (Yellow) 01/27/24 19:50 Urine Appearance Clear (CLEAR) 01/27/24 19:50 Urine pH 5.0 (5-7) 01/27/24 19:50 Ur Specific [place] 1.028 (1.005-1.030) 01/27/24 19:50 Urine Protein Negative (Negative) 01/27/24 19:50 Urine Glucose (UA) Negative (Normal) 01/27/24 19:50 Urine Ketones Trace (Negative) 01/27/24 19:50 Urine Blood Negative (Negative) 01/27/24 19:50 Urine Nitrate Negative (Negative) 01/27/24 19:50 Urine Bilirubin Negative (Negative) 01/27/24 19:50 Urine Urobilinogen 1.0 mg/dL (Negative) 01/27/24 19:50 Ur Leukocyte Esterase Negative (Negative) 01/27/24 19:50 Urine RBC 0-2 /hpf (0-2) 01/27/24 19:50 Urine WBC 0-5 /hpf (0-5) 01/27/24 19:50 Ur Squamous Epith Cells 0-5 /hpf (0-5) 01/27/24 19:50 Amorphous Sediment Not Reportable 01/27/24 19:50 Urine Bacteria None seen /hpf (NONE) 01/27/24 19:50 Hyaline Casts 2.87 /lpf 01/27/24 19:50 Coronavirus (PCR) Negative (Negative) 01/27/24 19:47 Influenza A (PCR) Negative (Negative) 01/27/24 19:47 Influenza Type B (PCR) Negative (Negative) 01/27/24 19:47 RSV (PCR) Negative (Negative) 01/27/24 19:47 All radiology interpretation(s) finalized by discharge Discharge Plan Discharge Patient Disposition: Home Clinical Impression: Weakness Sinusitis Qualifiers: Sinusitis location: unspecified location Chronicity: chronic Qualified Code(s): J32.9 - Chronic sinusitis, unspecified Condition: Stable Prescriptions: No Action niacin 500 mg capsule, extended release 500 mg PO BID simvastatin 20 mg tablet 20 mg PO DAILY amlodipine-benazepril 10-40 mg capsule 1 cap PO DAILY aspirin [Adult Low Dose Aspirin] 81 mg tablet,delayed release (DR/EC) 81 mg PO DAILY chlorthalidone 25 mg tablet 25 mg PO DAILY sildenafil (pulm.hypertension) 20 mg tablet 20 mg PO .prn Rx Instructions: administer doses at least 4-6 hours apart molnupiravir 200 mg capsule 800 mg PO Q12H 5 Days Qty: 40 0RF ceftriaxone 1 gram recon soln 1 g IM ONCE Qty: 1 0RF cefdinir 300 mg capsule 300 mg PO BID 10 Days Qty: 20 0RF (DME) FreeStyle [place] 2 [place] Misc See Rx Instructions .Route Qty: 1 0RF Rx Instructions: As directed (DME) FreeStyle [place] 2 Sensor Kit See Rx Instructions .ROUTE .COMPLEX Qty: 6 0RF Dose Instruction: CHANGE every 14 DAYS Rx Instructions: CHANGE every 14 DAYS insulin lispro 100 unit/mL insulin pen See Rx Instructions .ROUTE .COMPLEX Qty: 15 1RF Dose Instruction: INJECT 10 UNITS (0.1ML) SUBCUTANEOUSLY THREE TIMES DAILY Rx Instructions: INJECT 12 UNITS (0.1ML) SUBCUTANEOUSLY THREE TIMES DAILY insulin glargine [Lantus Solostar U-100 Insulin] 100 unit/mL (3 mL) insulin pen See Rx Instructions .ROUTE .COMPLEX Qty: 15 2RF Dose Instruction: INJECT 50 UNITS SUBCUTANEOUSLY ONCE A DAY FOR 30 DAY Rx Instructions: INJECT 50 UNITS SUBCUTANEOUSLY ONCE A DAY FOR 30 DAY Discharge Orders: Discharge ED (Routine); Ordered 01/27/24 Ordered By: Richard Mcgovern Referrals: Swati Welsh PA [Primary Care Provider] - Activity Restrictions/Additional Instructions: Continue taking your Augmentin. Continue monitoring blood sugars closely at home. Drink plenty of water. Please follow-up with your primary care provider in the next day or 2 for general reevaluation. Follow-up with the ENT, await call to schedule appointment. Please note that if you continue to have worsening of symptoms, or you develop any other new or concerning symptoms, to return to the emergency department. Coding Level of Care Code ED Proposal Specialist for Carolg Fwd Related Data Home Medications Medication Instructions Recorded Confirmed amlodipine 10 mg-benazepril 40 mg 1 cap PO DAILY 08/29/20 01/19/24 capsule aspirin 81 mg tablet,delayed 81 mg PO DAILY 08/29/20 01/19/24 release (Adult Low Dose Aspirin) niacin 500 mg capsule,extended 500 mg PO BID 08/29/20 01/19/24 release simvastatin 20 mg tablet 20 mg PO DAILY 08/29/20 01/19/24 sildenafil (pulm.hypertension) 20 20 mg PO .prn 08/24/21 01/19/24 mg tablet chlorthalidone 25 mg tablet 25 mg PO DAILY 09/04/22 01/19/24 Previous Rx's Medication Instructions Recorded flash glucose scanning reader #1 ea 04/16/23 (FreeStyle [place] 2 [place]) molnupiravir 200 mg capsule (EUA) 800 mg (4 x 200 mg) PO Q12H 5 days 08/31/23 #40 caps FreeStyle [place] 2 Sensor (flash #6 kits 11/20/23 glucose sensor) insulin lispro 100 unit/mL See Rx Instructions .Route 11/24/23 subcutaneous pen .COMPLEX #15 mL cefdinir 300 mg capsule 300 mg PO BID 10 days #20 caps 01/07/24 insulin glargine 100 unit/mL (3 See Rx Instructions .Route 01/20/24 mL) subcutaneous pen (Lantus .COMPLEX #15 mL Solostar U-100 Insulin) Allergies Allergy/AdvReac Type Severity Reaction Status Date / Time No Known Allergies Allergy Verified 01/27/24 19:32
[2024-01-27 20:30] LABS: Covid PCR NEGATIVE (Negative); Influenza A NEGATIVE (Negative); Influenza B NEGATIVE (Negative); Respiratory Syncytial Virus Ce NEGATIVE (Negative)
[2024-01-27 20:38] LABS: Basophils % 0.2 %; Eosinophils # 0.4 10^3/uL (0.0-0.8); Hematocrit 43.6 % (37-53); Lymphocytes # 1.7 10^3/uL (0.8-4.8); Lymphocytes % 13.8 %; Mean Corpuscular HGB Conc 33.5 g/dL (30-55); Mean Corpuscular Hemoglobin 30.2 pg (27-33); Mean Corpuscular Volume 90.1 fl (82-101); Monocytes # 0.9 10^3/uL (0.2-0.9); Neutrophils # 9.28 10^3/uL (1.8-7.7); Neutrophils % 75.6 %; Nucleated Red Blood Cells % 0 %; Platelet Count 193 10^3/cmm (157-399); Red Blood Count 4.84 10^6/uL (3.85-5.65); Red Cell Distribution Width 13.7 % (12.1-15.1); White Blood Count 12.28 10^3/uL (3.29-11.43)
[2024-01-27 20:46] LABS: Troponin(5th) Baseline 24 ng/L (0-15)
[2024-01-27 21:04] LABS: Alanine Aminotransferase 23 U/L (0-41); Alkaline Phosphatase 75 U/L (40-130); Anion Gap 12.4 (5-19); Aspartate Amino Transferase 14 U/L (0-40); Blood Urea Nitrogen 26 mg/dL (8-23); Calcium 8.9 mg/dL (8.5-10.5); Carbon Dioxide 24 mmol/L (22-29); Chloride 105 mmol/L (98-107); Creatinine Clr Calc Pharmacy 44.6169; Globulin 2.2 g/dL (1.3-4.6); Glucose 134 mg/dL (65-115); Lipase 18 U/L (13-60); Magnesium 2.2 mg/dL (1.7-2.3); NT Pro B Type Natriuretic Pept 67 pg/mL (0-450); Osmolality Calculated 291 mOsm/kg (285-295); Potassium 4.4 mmol/L (3.5-5.1); Sodium 137 mmol/L (136-145); Total Bilirubin 0.4 mg/dL (0.15-1.2); Total Protein 6.2 g/dL (6.6-8.7)
[2024-01-27] MEDS: iohexol 350 mg/mL 500 mL Btl (per mL) IV (21:23)
[2024-01-27 21:32] VITALS: BP 140/59; PULSE 53; O2SAT 96
--- NOTE | 2024-01-27 21:47 | ECG_ITS ---
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 Measurements Intervals [place] Rate: 71 P: 93 IN: 179 QRS: -32 QRSD: 117 T: 71 QT: 355 QTc: 387 Interpretive Statements SINUS RHYTHM LEFT AXIS DEVIATION [QRS AXIS < -30] INCOMPLETE RIGHT BUNDLE BRANCH BLOCK [90+ ms QRS DURATION, TERMINAL R IN V1/V2, 40+ ms S IN I/aVL/V4/V5/V6] POSSIBLE SEPTAL MYOCARDIAL INFARCTION , OF INDETERMINATE AGE [30 ms Q WAVE IN V1/V2] Compared to ECG 01/27/2024 19:54:45 Myocardial infarct finding now present Sinus bradycardia no longer present T-wave abnormality no longer present Electronically Signed On 01-28-2024 19:16:02 SLATE PICKER by Neil Condon M.D. [email or web address]
[2024-01-27] MEDS: dexamethasone 10 mg/mL INJ IM (22:20)
[2024-01-27 22:36] VITALS: BP 115/57; PULSE 62; O2SAT 96
[2024-01-27 22:50] LABS: Troponin 5 2HR Delta 0.04 ABS# (0-10)
[2024-01-27 22:52] LABS: Troponin 5 2HR 24.04 ng/L (0-15)
== END 2024-01-27 22:37 | disposition home or self-care (01) ==
PROVIDERS: Emergency Provider Physician Assistant; PCP Physician Assistant
DX: R53.1 Weakness (principal); J32.9 Chronic sinusitis, unspecified; Z79.4 Long term (current) use of insulin; Z11.52 Encounter for screening for COVID-19; E11.9 Type 2 diabetes mellitus without complications; I10 Essential (primary) hypertension
CPT/HCPCS: 0241U; 36415; 71260; 80053; 81001; 83690; 83735; 83880; 84484; 85025; 93005; 96372; 99285; J1100

== ENCOUNTER 2024-02-09 07:07 | Outpatient (CLI) | payer MEDICARE, OTHER, SELFPAY ==
[2024-02-09 08:03] LABS: Alanine Aminotransferase 25 U/L (0-41); Albumin Level 3.9 g/dL (3.5-5.2); Alkaline Phosphatase 74 U/L (40-130); Anion Gap 14.4 (5-19); Aspartate Amino Transferase 22 U/L (0-40); Blood Urea Nitrogen 32 mg/dL (8-23); Calcium 9.6 mg/dL (8.5-10.5); Carbon Dioxide 26 mmol/L (22-29); Chloride 102 mmol/L (98-107); Cholesterol 155 mg/dL (0-200); Globulin 2.6 g/dL (1.3-4.6); Glucose 183 mg/dL (65-115); HDL Cholesterol 31 mg/dL (60-100); LDL Cholesterol Calculated 88 mg/dL (50-129); LDL HDL Ratio 2.84 RATIO (0.00-3.22); Osmolality Calculated 298 mOsm/kg (285-295); Potassium 4.4 mmol/L (3.5-5.1); Sodium 138 mmol/L (136-145); Total Bilirubin 0.3 mg/dL (0.15-1.2); Total Protein 6.5 g/dL (6.6-8.7); Triglycerides 180 mg/dL (0-150)
[2024-02-09 08:14] LABS: Estmated Average Glucose 200; Hemoglobin A1C 8.6 % (4.0-6.0)
[2024-02-09 08:27] LABS: Creatinine Urine, Random 105 mg/dL (39-259); Microalbum Creatinine Ratio Ur 10 mg/dL (0-20); Microalbumin Random Urine 1 ug/dL (0-20)
== END 2024-02-09 07:08 | disposition home or self-care (01) ==
LOC: LAB 07:10
PROVIDERS: PCP Physician Assistant; Visit Provider Internal Medicine
DX: E78.2 Mixed hyperlipidemia (principal); E11.9 Type 2 diabetes mellitus without complications
CPT/HCPCS: 36415; 80053; 80061; 82044; 83036

== ENCOUNTER 2024-02-13 12:30 | Outpatient (CLI) | payer MEDICARE, OTHER, SELFPAY ==
--- NOTE | 2024-02-13 12:34 | USCV_ITS ---
Herman Russo Age: 78 Gender: M : 1945 Exam Date: 02/13/2024 12:52 Ordering Phys: Swati Welsh Technologist: CT Exam Location: [facility] [place]_ Indication: Risk Factors: Previous Vascular Surgery: RIGHT LEFT BP: 136.0 / 71.00 BP: 130.0/ 72.00 0 0 Waveform Velocity (cm/s) Velocity (cm/s) Waveform Triphasic 73.4 Iliac Prox 66.6 Biphasic Biphasic 78.4 Iliac Mid 81.1 Biphasic Biphasic 132.4 Iliac Distal 110.7 Biphasic Biphasic 134.0 INFORMATICA 113.0 Biphasic Biphasic 88.0 SFA Prox 142.0 Biphasic Biphasic 93.0 SFA Mid 81.0 Biphasic Biphasic 133.0 SFA Dist 77.0 Biphasic Biphasic 105.0 POP 230.0 Biphasic N/A 0.0 SHINGLE INSPECTOR 70.0 Biphasic Triphasic 66.0 DPA 41.0 Biphasic 0.9 MARK 0.9 FINDINGS Mild to moderate diffuse irregular plaque in the iliac and common femoral arteries bilaterally. Minimal plaque in the femoral arteries bilaterally. Mild to moderate heterogenous irregular plaques in the popliteal arteries bilaterally Resting MARK 0.9 bilaterally No Doppler flow signals in the posterior tibial artery on the right side CONCLUSIONS 1. Slightly diminished resting MARK of 0.9 bilaterally suggestive of mild peripheral artery disease. 2. Mild to moderate heterogenous irregular plaques in the iliac, common femoral and popliteal arteries bilaterally 3. Possible total occlusion of the posttibial artery on the right side Compared to the study from 06/03/2017, the abnormal resting MARK appears to be new Dr Neil Condon MD [facility] (Electronically Signed) Final Date: 13 February 2024 18:36 S
== END 2024-02-13 12:31 | disposition home or self-care (01) ==
PROVIDERS: PCP Physician Assistant; Visit Provider Physician Assistant
DX: I70.203 Unspecified atherosclerosis of native arteries of extremities, bilateral legs (principal)
CPT/HCPCS: 93925

== ENCOUNTER → 2024-02-17 13:45 | Outpatient (BNVA) | payer MEDICARE, OTHER, SELFPAY | PROVIDERS: PCP Physician Assistant; Visit Provider Internal Medicine | DX: E11.9 Type 2 diabetes mellitus without complications (principal); E78.2 Mixed hyperlipidemia; Z79.4 Long term (current) use of insulin | CPT/HCPCS: 99214 ==

== ENCOUNTER 2024-02-26 07:17 | Outpatient (CLI) | payer MEDICARE, OTHER, SELFPAY ==
[2024-02-26 07:35] VITALS: BMI 25.8
--- NOTE | 2024-02-26 07:36 | NMCV_ITS ---
NM sonu perf SPECT r/s* [id number] Herman Russo Age: 78 Gender: M : 1945 Exam Date: 02/26/2024 08:30 Ordering Phys: Swati Welsh Technologist: JEROMY Salgado Exam Location: [facility] Indications: cp STRESS TEST Please see separate stress test report in [facility] for full findings IMAGE PROTOCOL Rest/Stress 1 Lexiscan Day Radiopharmaceutical Dose (mCi) Administration Site Administered by Rest: Tc-99m 10.8 IV JEROMY Salgado Sestamibi Stress:Tc-99m 32.6 IV JEROMY Elmore Sestamibi Rest: 26-Feb-2024 60 Discovery 630 Stress: 26-Feb-2024 30 Discovery 630 0.4mg Lexiscan. Images obtained in supine and prone position. SPECT RESULTS Technical Quality: Good Raw Data Analysis: Normal Image Corrections: No attenuation or motion correction applied Summed Stress Score: 4 Summed Rest Score: 0 Summed Difference Score: 4 PERFUSION FINDINGS Small to medium sized area of partially reversible perfusion defect seen in the apical lateral and inferolateral gallo. This is consistent with small sized area of prior infarct with small to medium sized area of fredo-infarct ischemia in the left circumflex artery territory. FUNCTIONAL RESULTS (calculated via Gated SPECT) Stress Image LV EF (%): 70 Stress EDV (mL):119 TID: 1.07 Stress ESV (mL):36 FUNCTIONAL FINDINGS: There is normal left ventricular systolic function. IMPRESSIONS 1. 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 2. LV systolic function is normal Moises Levy MD (Electronically Signed) Final Date: 26 February 2024 11:45 S
--- NOTE | 2024-02-26 07:36 | ECG_ITS ---
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 Interpretive Statements LEXISCAN: Procedure: At the baseline, the blood pressure was 152/77 mmHg with a heart rate of 51 bpm. The electrocardiogram showed sinus bradycardia, normal axis with normal ST and T's. The Lexiscan was infused over a period of 20 seconds. A total of 0.4 mg of Lexiscan was infused. The stress phase was continued for a total of 5 minutes. Heart rate was at the end of stress phase was 58 bpm and a blood pressure of 148/98 mmHg. The EKG at the peak infusion revealed normal sinus rhythm with no significant ST-T wave changes. Sestamibi was injected 20 seconds after the Lexiscan infusion. Blood pressure at the end of recovery phase was 139/93 mmHg with a heart rate of 56 bpm. Conclusion: 1. Normal EKG response to Lexiscan infusion 2. No Lexiscan induced chest pain or cardiac arrhythmia. 3. Normal blood pressure and heart rate response. 4. Sestamibi/sestamibi perfusion scan pending; see separate report. Electronically Signed On 02-29-2024 20:41:50 AP PROCESSOR by Moises Levy M.D. [id number]
[2024-02-26] MEDS: regadenoson 0.4 Mg/5 ml Syringe IVP (08:53)
[2024-02-26 09:02] VITALS: BP 139/93; PULSE 56
== END 2024-02-26 07:18 | disposition home or self-care (01) ==
PROVIDERS: PCP Physician Assistant; Visit Provider Physician Assistant
DX: I21.21 ST elevation (STEMI) myocardial infarction involving left circumflex coronary artery (principal)
CPT/HCPCS: 36415; 78452; 93017; 96374; A9500; J2785

== ENCOUNTER 2024-03-09 14:13 | Outpatient (RCR) | payer MEDICARE, OTHER, SELFPAY | END 2024-04-02 23:59 | disposition home or self-care (01) | LOC: SPT 14:13 | PROVIDERS: PCP Physician Assistant; Visit Provider Physician Assistant | DX: M79.604 Pain in right leg (principal); M79.605 Pain in left leg | CPT/HCPCS: 97110; 97161 ==

== ENCOUNTER → 2024-03-11 09:11 | Outpatient (BNVA) | payer MEDICARE, OTHER, SELFPAY | PROVIDERS: PCP Physician Assistant; Visit Provider Internal Medicine | DX: E78.2 Mixed hyperlipidemia (principal); R94.39 Abnormal result of other cardiovascular function study; E11.51 Type 2 diabetes mellitus with diabetic peripheral angiopathy without gangrene; F17.220 Nicotine dependence, chewing tobacco, uncomplicated; Z79.4 Long term (current) use of insulin | CPT/HCPCS: 99204 ==

== ENCOUNTER 2024-04-07 14:07 | Outpatient (CLI) | payer MEDICARE, OTHER, SELFPAY ==
--- NOTE | 2024-04-07 14:15 | USCV_ITS ---
Herman Russo Age: 78 Gender: M : 1945 Exam Date: 04/07/2024 14:20 Ordering Phys: Moises Levy M.D ([email or web address]) Technologist: [place] [facility] [place]: BP: 144 / 66 HR: 49 Rhythm: Sinus Technical Quality: Adequate MEASUREMENTS (Male / Female) Normal Values 2D ECHO LVOT Diameter 2.0 cm LV Ejection Fraction MOD 4C 58.4 % LV Ejection Fraction MOD 2C 62.9 % LV Ejection Fraction 2C AL 63.1 % LA Diameter 4.2 cm RA Systolic Volume 4C AL 38.8 ml RA Systolic Volume 4C MOD 36.6 ml LA Sys Volume AL 55.7 cm cubed LA Sys Volume Index AL 27.7 cm cubed/m squared Aorta at Sinotubular Diameter 2.2 cm IVC Diameter 1.8 cm M-MODE LA Ao Ratio MM 1.7 AV Cusp Separation MM 1.8 cm DOPPLER AV Peak Velocity 106.0 cm/s LVOT Peak Velocity 99.0 cm/s AV Area Cont Eq vti 2.4 cm squared AV Area Cont Eq pk 3.0 cm squared MV Peak Velocity 91.0 cm/s MV Area PHT 2.8 cm squared Mitral E to A Ratio 0.8 TR Peak Velocity 106.0 cm/s TR Peak Gradient 4.5 mmHg TV Peak E Velocity 30.0 cm/s PV Peak Velocity 101.0 cm/s FINDINGS Left Ventricle Left ventricle is normal size. LV systolic function is normal with EF 55- 60%. No regional wall motion abnormalities are seen. Grade 1 diastolic dysfunction Right Ventricle Normal in size and function Right Atrium Normal in size Left Atrium Normal in size Mitral Valve Structurally normal mitral valve. Mild mitral regurgitation. Aortic Valve Structurally normal aortic valve. No significant stenosis or regurgitation. Tricuspid Valve Mild tricuspid regurgitation. Insufficient TR jet to evaluate RVSP. Pulmonic Valve Not well visualized Pericardium Normal Aorta Normal in size IVC Appears to be normal CONCLUSIONS LV systolic function is normal with EF of 55-60%. Grade 1 diastolic dysfunction Mild mitral regurgitation Mild tricuspid regurgitation No comparison studies are available. Moises Levy MD (Electronically Signed) Final Date: 09 April 2024 15:33 S
== END 2024-04-07 14:08 | disposition home or self-care (01) ==
LOC: RAD 14:08
PROVIDERS: PCP Physician Assistant; Visit Provider Internal Medicine
DX: R06.02 Shortness of breath (principal); R93.1 Abnormal findings on diagnostic imaging of heart and coronary circulation; I34.0 Nonrheumatic mitral (valve) insufficiency; I07.1 Rheumatic tricuspid insufficiency
CPT/HCPCS: 93306

== ENCOUNTER 2024-05-12 07:23 | Outpatient (CLI) | payer MEDICARE, OTHER, SELFPAY ==
[2024-05-12 08:03] LABS: Estmated Average Glucose 183
[2024-05-12 08:07] LABS: Alanine Aminotransferase 22 U/L (0-41); Alkaline Phosphatase 62 U/L (40-130); Anion Gap 13.1 (5-19); Aspartate Amino Transferase 18 U/L (0-40); Blood Urea Nitrogen 28 mg/dL (8-23); Calcium 9.1 mg/dL (8.5-10.5); Carbon Dioxide 26 mmol/L (22-29); Chloride 104 mmol/L (98-107); Chol HDL Ratio 5.04 mg/dL (1.0-5.00); Cholesterol 141 mg/dL (0-200); Globulin 2.9 g/dL (1.3-4.6); Glucose 176 mg/dL (65-115); HDL Cholesterol 28 mg/dL (60-100); LDL Cholesterol Calculated 83 mg/dL (50-129); LDL HDL Ratio 2.96 RATIO (0.00-3.22); Osmolality Calculated 298 mOsm/kg (285-295); Potassium 4.1 mmol/L (3.5-5.1); Sodium 139 mmol/L (136-145); Total Bilirubin 0.4 mg/dL (0.15-1.2); Total Protein 6.9 g/dL (6.6-8.7); Triglycerides 150 mg/dL (0-150)
[2024-05-12 08:08] LABS: Creatinine Urine, Random 83 mg/dL (39-259); Microalbum Creatinine Ratio Ur 12 mg/dL (0-20); Microalbumin Random Urine 1 ug/dL (0-20)
== END 2024-05-12 07:24 | disposition home or self-care (01) ==
LOC: LAB 07:26
PROVIDERS: PCP Physician Assistant; Visit Provider Internal Medicine
DX: E78.2 Mixed hyperlipidemia (principal); E11.9 Type 2 diabetes mellitus without complications
CPT/HCPCS: 36415; 80053; 80061; 82044; 83036

== ENCOUNTER → 2024-05-18 10:29 | Outpatient (BNVA) | payer MEDICARE, OTHER, SELFPAY | PROVIDERS: PCP Physician Assistant; Visit Provider Internal Medicine | DX: E11.9 Type 2 diabetes mellitus without complications (principal); E78.2 Mixed hyperlipidemia | CPT/HCPCS: 99214 ==

== ENCOUNTER → 2024-07-27 11:28 | Outpatient (BNVA) | payer MEDICARE, OTHER, SELFPAY | PROVIDERS: PCP Physician Assistant; Visit Provider Student in an Organized Health Care Education/Training Program | DX: M25.561 Pain in right knee (principal); M25.562 Pain in left knee; M54.50 Low back pain, unspecified | CPT/HCPCS: 73560; 73565; 99203 ==

== ENCOUNTER 2024-08-02 06:58 | Outpatient (CLI) | payer MEDICARE, OTHER, SELFPAY ==
[2024-08-02 08:12] LABS: Alanine Aminotransferase 39 U/L (0-41); Albumin Level 3.8 g/dL (3.5-5.2); Alkaline Phosphatase 59 U/L (40-130); Anion Gap 15.2 (5-19); Aspartate Amino Transferase 30 U/L (0-40); Blood Urea Nitrogen 31 mg/dL (8-23); Calcium 8.9 mg/dL (8.5-10.5); Carbon Dioxide 21 mmol/L (22-29); Chloride 107 mmol/L (98-107); Cholesterol 130 mg/dL (0-200); Globulin 2.6 g/dL (1.3-4.6); Glucose 177 mg/dL (65-115); HDL Cholesterol 25 mg/dL (60-100); LDL Cholesterol Calculated 67 mg/dL (50-129); LDL HDL Ratio 2.68 RATIO (0.00-3.22); Osmolality Calculated 299 mOsm/kg (285-295); Potassium 4.2 mmol/L (3.5-5.1); Sodium 139 mmol/L (136-145); Total Bilirubin 0.4 mg/dL (0.15-1.2); Total Protein 6.4 g/dL (6.6-8.7); Triglycerides 192 mg/dL (0-150)
[2024-08-02 08:39] LABS: Creatinine Urine, Random 90 mg/dL (39-259); Microalbum Creatinine Ratio Ur 11 mg/dL (0-20); Microalbumin Random Urine 1 ug/dL (0-20)
[2024-08-02 08:41] LABS: Estmated Average Glucose 197; Hemoglobin A1C 8.5 % (4.0-6.0)
== END 2024-08-02 06:59 | disposition home or self-care (01) ==
PROVIDERS: PCP Physician Assistant; Visit Provider Internal Medicine
DX: E78.2 Mixed hyperlipidemia (principal); E11.9 Type 2 diabetes mellitus without complications
CPT/HCPCS: 36415; 80053; 80061; 82044; 83036

== ENCOUNTER → 2024-08-05 10:04 | Outpatient (BNVA) | payer MEDICARE, OTHER, SELFPAY | PROVIDERS: PCP Physician Assistant; Referring Provider Student in an Organized Health Care Education/Training Program; Visit Provider Orthopaedic Surgery | DX: M54.50 Low back pain, unspecified (principal) | CPT/HCPCS: 72050; 99203 ==

== ENCOUNTER 2024-08-09 13:41 | Outpatient (CLI) | payer MEDICARE, OTHER, SELFPAY | END 2024-08-09 13:42 | disposition home or self-care (01) | LOC: SPT 13:42 | PROVIDERS: Visit Provider Physician Assistant | DX: Z46.89 Encounter for fitting and adjustment of other specified devices (principal); M25.562 Pain in left knee | CPT/HCPCS: L1851 ==

== ENCOUNTER → 2024-08-10 12:02 | Outpatient (BNVA) | payer MEDICARE, OTHER, SELFPAY | PROVIDERS: PCP Physician Assistant; Visit Provider Internal Medicine | DX: E11.9 Type 2 diabetes mellitus without complications (principal); E78.2 Mixed hyperlipidemia | CPT/HCPCS: 99214 ==

== ENCOUNTER 2024-08-13 13:24 | Outpatient (RCR) | payer MEDICARE, OTHER, SELFPAY | END 2024-08-27 08:36 | disposition home or self-care (01) | LOC: SPT 13:24 | PROVIDERS: PCP Physician Assistant; Visit Provider Orthopaedic Surgery | DX: M54.2 Cervicalgia (principal); G89.29 Other chronic pain | CPT/HCPCS: 97110; 97161 ==

== ENCOUNTER → 2024-09-16 08:41 | Outpatient (BNVA) | payer MEDICARE, OTHER, SELFPAY | PROVIDERS: PCP Physician Assistant; Visit Provider Orthopaedic Surgery | DX: M54.2 Cervicalgia (principal) | CPT/HCPCS: 99213 ==

== ENCOUNTER 2024-11-02 07:06 | Outpatient (CLI) | payer MEDICARE, OTHER, SELFPAY ==
[2024-11-02 08:11] LABS: Alanine Aminotransferase 30 U/L (0-41); Albumin Level 3.9 g/dL (3.5-5.2); Alkaline Phosphatase 74 U/L (40-130); Anion Gap 14.2 (5-19); Aspartate Amino Transferase 23 U/L (0-40); Blood Urea Nitrogen 25 mg/dL (8-23); Calcium 9.2 mg/dL (8.5-10.5); Carbon Dioxide 24 mmol/L (22-29); Chloride 103 mmol/L (98-107); Cholesterol 133 mg/dL (0-200); Globulin 2.7 g/dL (1.3-4.6); Glucose 161 mg/dL (65-115); HDL Cholesterol 24 mg/dL (60-100); Osmolality Calculated 292 mOsm/kg (285-295); Potassium 4.2 mmol/L (3.5-5.1); Sodium 137 mmol/L (136-145); Total Protein 6.6 g/dL (6.6-8.7); Triglycerides 245 mg/dL (0-150)
[2024-11-02 08:36] LABS: Creatinine Urine, Random 76 mg/dL (39-259); Microalbum Creatinine Ratio Ur 13 mg/dL (0-20)
[2024-11-02 08:50] LABS: Estmated Average Glucose 183; Hemoglobin A1C 8.0 % (4.0-6.0)
== END 2024-11-02 07:07 | disposition home or self-care (01) ==
PROVIDERS: PCP Physician Assistant; Visit Provider Internal Medicine
DX: E11.9 Type 2 diabetes mellitus without complications (principal); E78.2 Mixed hyperlipidemia
CPT/HCPCS: 36415; 80053; 80061; 82044; 83036

== ENCOUNTER → 2024-11-10 11:28 | Outpatient (BNVA) | payer MEDICARE, OTHER, SELFPAY | PROVIDERS: PCP Physician Assistant; Visit Provider Internal Medicine | DX: E11.9 Type 2 diabetes mellitus without complications (principal); E78.2 Mixed hyperlipidemia; Z79.4 Long term (current) use of insulin | CPT/HCPCS: 99214 ==

== ENCOUNTER → 2024-12-09 12:47 | Outpatient (BNVA) | payer MEDICARE, OTHER, SELFPAY | PROVIDERS: PCP Physician Assistant; Visit Provider Internal Medicine | DX: E78.2 Mixed hyperlipidemia (principal); R94.39 Abnormal result of other cardiovascular function study; I73.9 Peripheral vascular disease, unspecified; E11.65 Type 2 diabetes mellitus with hyperglycemia; Z79.4 Long term (current) use of insulin | CPT/HCPCS: 99214 ==